=== PATIENT | male | born 1995 | race Hispanic/Latino ===

== ENCOUNTER 2020-02-05 15:39 | Emergency (ER) | payer OTHER, SELFPAY ==
[2020-02-06 11:51] LABS: SARS-CoV-2 MS2 Positive; SARS-CoV-2 N Gene Negative; SARS-CoV-2 S Gene Negative; SARS-CoV-2 by NAA Not Detected (NotDetected); SARS-CoV-2 orf1ab Negative
== END 2020-02-05 15:54 | disposition home or self-care (01) ==
LOC: ERS 15:39
DX: R51 Headache (principal); R68.83 Chills (without fever); Z20.828 Contact with and (suspected) exposure to other viral communicable diseases
CPT/HCPCS: 87635; 99284; U0003